=== PATIENT | female | born 1980 | race Caucasian/White ===

== ENCOUNTER 2024-09-06 23:31 | Emergency (ER) | payer MEDICAID ==
[~2024-09-06] VITALS: Ht 167.6 cm; Wt 136.6 kg
[2024-09-07 00:50] LABS: BASO # 0.1 10^3/uL (0.0-0.2); BASO % 0.8 % (0.0-1.0); EOS # 0.1 10^3/uL (0.0-0.5); EOS % 1.3 % (0.0-3.0); HEMATOCRIT 35.9 % (36.0-47.0); HEMOGLOBIN 13.1 g/dl (12.0-15.5); LYMPH # 2.7 10^3/uL (1.5-5.0); LYMPH % 29.3 % (24.0-44.0); MEAN CORPUSCULAR HGB CONC 36.5 g/dl (32.0-36.5); MONO # 0.6 10^3/uL (0.0-0.8); MONO % 6.4 % (2.0-8.0); NEUTROPHILS # 5.7 10^3/uL (1.5-8.5); NEUTROPHILS % 61.9 % (36.0-66.0); PLATELET COUNT, AUTOMATED 354 10^3/uL (150-450); RED BLOOD COUNT 3.74 10^6/uL (4.00-5.40); WHITE BLOOD COUNT 9.2 10^3/uL (4.0-10.0)
[2024-09-07 00:53] LABS: BLOOD UREA NITROGEN 25 MG/DL (9-23); CALCIUM LEVEL 9.2 MG/DL (8.5-10.1); CARBON DIOXIDE LEVEL 28 MMOL/L (20-31); CHLORIDE LEVEL 102 MMOL/L (98-107); CREATININE FOR GFR 0.61 MG/DL (0.55-1.30); GLOMERULAR FILTRATION RATE > 60.0 (>58); GLUCOSE, FASTING 84 MG/DL (60-100); POTASSIUM SERUM 3.8 MMOL/L (3.5-5.1); SODIUM LEVEL 137 MMOL/L (136-145)
[2024-09-07 04:43] LABS: THYROID STIMULATING HORMONE 2.695 uIU/ML (0.55-4.78)
[2024-09-07 07:30] VITALS: TEMP 97.4
[2024-09-07 08:00] VITALS: BP 101/56; O2SAT 95
== END 2024-09-07 08:16 | disposition home or self-care (01) ==
LOC: M ED 23:31
DX: N93.8 Other specified abnormal uterine and vaginal bleeding (principal); F12.10 Cannabis abuse, uncomplicated; F10.10 Alcohol abuse, uncomplicated; B96.81 Helicobacter pylori [H. pylori] as the cause of diseases classified elsewhere; R94.31 Abnormal electrocardiogram [ECG] [EKG]

== ENCOUNTER 2025-01-03 11:00 | Day surgery (SDC) | payer MEDICARE, MEDICAID ==
[~2025-01-03] VITALS: Ht 170.2 cm; Wt 140.2 kg
[~2025-01-03 11:00] MED LIST: D 1010004 PO; HYDR12CA PO; IRON65TA2 PO; KETOROLAC 60MG 2ML VIAL As Ordered ONE; LIDOCAINE 2% 100MG/5ML SDV (FOR ANES.) As Ordered ONE; MELO7.5T35 PO; MIDAZOLAM INJ 2MG/2ML VIAL As Ordered ONE; OMEG10002 PO; ONDANSETRON 4MG 2ML VIAL As Ordered ONE; PROBCAP14 PO; ROCURONIUM BROMIDE 50MG/5ML VIAL As Ordered ONE; THERTAB52 PO; VALT500T PO; ceFAZolin SOD 2 GM in IV 1 EA IV ONE; fentaNYL 100 MCG/2 ML INJECTION As Ordered ONE; propofoL 200 MG/20 ML VIAL As Ordered ONE
[2025-01-03] MEDS ORDERED: NS (Normal Saline) 0.9% 1,000 ML IV SCH ×2 (11:25→14:50)
[2025-01-03 11:48] LABS: HEMOGLOBIN 12.8 g/dl (12.0-15.5); MEAN CORPUSCULAR HEMOGLOBIN 32.3 pg (27.0-33.0); MEAN CORPUSCULAR HGB CONC 35.6 g/dl (32.0-36.5); MEAN CORPUSCULAR VOLUME 90.9 fl (80.0-96.0); PLATELET COUNT, AUTOMATED 336 10^3/uL (150-450); RED BLOOD COUNT 3.96 10^6/uL (4.00-5.40); WHITE BLOOD COUNT 5.2 10^3/uL (4.0-10.0)
[2025-01-03] MEDS ORDERED: ACETAMINOPHEN 1000MG/100ML IV BAG As Ordered ONE (12:36)
[2025-01-03] MEDS: ceFAZolin SOD 3 GM in DEXTROSE 5% (D5W) MINI-BAG PLU 1... IV ONE (12:53)
[2025-01-03] MEDS ORDERED: METOCLOPRAMIDE INJ 10MG/2ML VIAL As Ordered ONE (13:54)
[2025-01-03] MEDS ORDERED: hydrALAZINE 20MG/ML 1ML VIAL As Ordered ONE (14:12)
[2025-01-03] MEDS ORDERED: SUGAMMADEX SODIUM 500 MG/5 ML VIAL (BRIDION) As Ordered ONE (14:40)
[2025-01-03] MEDS ORDERED: fentaNYL 100 MCG/2 ML INJECTION IV PRN (14:50)
[2025-01-03] MEDS ORDERED: HYDROMORPHONE HCL 0.5 MG/ 0.5 ML SYRINGE IV PRN (14:50)
[2025-01-03] MEDS ORDERED: oxyCODONE 5MG TAB PO PRN (14:50)
[2025-01-03] MEDS ORDERED: IBUP-1022 PO (14:54)
[2025-01-03] MEDS ORDERED: COLA100C5 PO (14:54)
[2025-01-03] MEDS ORDERED: OXYC1TAB23 PO (14:55)
[2025-01-03] MEDS ORDERED: LR 1,000 ML IV SCH (15:10)
[2025-01-03] MEDS ORDERED: PERCOCET 5MG/325MG TAB PO PRN (15:15)
[2025-01-03] MEDS: ONDANSETRON 4MG 2ML VIAL IV PRN (15:15)
[2025-01-03 16:45] VITALS: BP 133/70; TEMP 98.4; O2SAT 96
== END 2025-01-03 16:45 | disposition home or self-care (01) ==
LOC: M SDC 11:00
PROVIDERS: ATTEND Specialist
DX: N92.0 Excessive and frequent menstruation with regular cycle (principal); D25.1 Intramural leiomyoma of uterus; N80.03 Adenomyosis of the uterus; N88.8 Other specified noninflammatory disorders of cervix uteri; N73.6 Female pelvic peritoneal adhesions (postinfective); D64.9 Anemia, unspecified; Z98.51 Tubal ligation status; I10 Essential (primary) hypertension; M32.9 Systemic lupus erythematosus, unspecified; Z79.899 Other long term (current) drug therapy; Z79.1 Long term (current) use of non-steroidal anti-inflammatories (NSAID)
CPT/HCPCS: 36415; 58571; 81025; 85027; 86850; 86900; 86901; 88307; J0131; J0360; J0665; J0690; J1100; J1885; J2250; J2405; J2765; J3010

== ENCOUNTER → 2025-01-25 | Outpatient (REF) | payer MEDICARE, MEDICAID ==
[~2025-01-25] MED LIST changes: +COLA100C5 PO; +IBUP-1022 PO; -KETOROLAC 60MG 2ML VIAL As Ordered ONE; -LIDOCAINE 2% 100MG/5ML SDV (FOR ANES.) As Ordered ONE; -MIDAZOLAM INJ 2MG/2ML VIAL As Ordered ONE; -ONDANSETRON 4MG 2ML VIAL As Ordered ONE; +OXYC1TAB23 PO; -ROCURONIUM BROMIDE 50MG/5ML VIAL As Ordered ONE; -ceFAZolin SOD 2 GM in IV 1 EA IV ONE; -fentaNYL 100 MCG/2 ML INJECTION As Ordered ONE; -propofoL 200 MG/20 ML VIAL As Ordered ONE
[2025-01-25 18:25] LABS: BASO # 0.1 10^3/uL (0.0-0.2); BASO % 0.9 % (0.0-1.0); EOS # 0.2 10^3/uL (0.0-0.5); HEMATOCRIT 35.5 % (36.0-47.0); HEMOGLOBIN 12.7 g/dl (12.0-15.5); LYMPH # 2.4 10^3/uL (1.5-5.0); MEAN CORPUSCULAR HEMOGLOBIN 32.4 pg (27.0-33.0); MEAN CORPUSCULAR HGB CONC 35.8 g/dl (32.0-36.5); MEAN CORPUSCULAR VOLUME 90.6 fl (80.0-96.0); MONO # 0.6 10^3/uL (0.0-0.8); MONO % 8.1 % (2.0-8.0); NEUTROPHILS # 4.5 10^3/uL (1.5-8.5); NEUTROPHILS % 57.6 % (36.0-66.0); PLATELET COUNT, AUTOMATED 397 10^3/uL (150-450); RED BLOOD COUNT 3.92 10^6/uL (4.00-5.40); WHITE BLOOD COUNT 7.9 10^3/uL (4.0-10.0)
[2025-01-25 18:29] LABS: ERYTHROCYTE SEDIMENTATION RATE 53 mm/hr (0-20)
[2025-01-25 18:45] LABS: HEMOGLOBIN A1c 5.2 % (4.0-6.0)
[2025-01-25 18:58] LABS: ALBUMIN 3.5 G/DL (3.2-5.2); ALKALINE PHOSPHATASE 84 U/L (35-104); ALT/SGPT 26 U/L (7.0-40); AST/SGOT 15 U/L (<34); BILIRUBIN,DIRECT < 0.1 MG/DL (<0.4); BILIRUBIN,TOTAL 0.2 MG/DL (0.3-1.2); BLOOD UREA NITROGEN 22 MG/DL (9-23); C REACTIVE PROTEIN QUANTITATIV 1.19 MG/DL (<1.0); CALCIUM LEVEL 8.8 MG/DL (8.5-10.1); CARBON DIOXIDE LEVEL 28 MMOL/L (20-31); CHLORIDE LEVEL 102 MMOL/L (98-107); CHOLESTEROL LEVEL 172 MG/DL (<200); CHOLESTEROL RISK RATIO 3.02 (<5); GLOMERULAR FILTRATION RATE > 60.0 (>58); GLUCOSE, FASTING 85 MG/DL (60-100); HDL CHOLESTEROL 56.9 MG/DL (>40); IRON (FE) 47 UG/DL (50-170); LDL CHOLESTEROL 96.3 MG/DL (<100); NON-HDL-C 115.1 MG/DL; PERCENT SATURATION 12.6 % (13.2-45.0); POTASSIUM SERUM 4.2 MMOL/L (3.5-5.1); SODIUM LEVEL 137 MMOL/L (136-145); TOTAL IRON BINDING CAPACITY 372 UG/DL (250-425); TOTAL PROTEIN 7.5 G/DL (5.7-8.2); TRIGLYCERIDES LEVEL 94 MG/DL (<150)
[2025-01-25 19:00] LABS: FERRITIN 11.5 NG/ML (7.3-270.7); THYROID STIMULATING HORMONE 1.656 uIU/ML (0.55-4.78); TOTAL 25(OH) VITAMIN D 39.9 NG/ML (20.0-100.0)
== END ==
LOC: M LAB REF 16:38
PROVIDERS: ATTEND Nurse Practitioner Family
DX: R69 Illness, unspecified (principal); E66.9 Obesity, unspecified; I10 Essential (primary) hypertension; Z86.39 Personal history of other endocrine, nutritional and metabolic disease; E55.9 Vitamin D deficiency, unspecified

== ENCOUNTER → 2025-04-06 | Outpatient (REF) | payer MEDICARE, MEDICAID ==
[2025-04-06 18:33] LABS: TOTAL 25(OH) VITAMIN D 33.4 NG/ML (20.0-100.0)
[2025-04-06 18:34] LABS: BLOOD UREA NITROGEN 18 MG/DL (9-23); CALCIUM LEVEL 8.6 MG/DL (8.5-10.1); CARBON DIOXIDE LEVEL 30 MMOL/L (20-31); CHLORIDE LEVEL 104 MMOL/L (98-107); CREATININE FOR GFR 0.58 MG/DL (0.55-1.30); FOLATE 20.3 NG/ML (>5.4); GLOMERULAR FILTRATION RATE > 90.0 (>58); GLUCOSE, FASTING 104 MG/DL (60-100); IRON (FE) 28 UG/DL (50-170); MAGNESIUM LEVEL 1.7 MG/DL (1.8-2.4); PERCENT SATURATION 7.9 % (13.2-45.0); POTASSIUM SERUM 4.2 MMOL/L (3.5-5.1); SODIUM LEVEL 141 MMOL/L (136-145); TOTAL IRON BINDING CAPACITY 356 UG/DL (250-425)
[2025-04-06 19:03] LABS: VITAMIN B12 LEVEL 675 PG/ML (211-911)
== END ==
LOC: M LAB REF 17:09
PROVIDERS: ATTEND Nurse Practitioner Family
DX: I10 Essential (primary) hypertension (principal); E55.9 Vitamin D deficiency, unspecified; D50.9 Iron deficiency anemia, unspecified; Z86.79 Personal history of other diseases of the circulatory system

== ENCOUNTER → 2025-11-12 | Outpatient (CLI) | payer MEDICARE ==
[~2025-11-12] MED LIST changes: +CHLO125TA; +HYDR12.510 PO; -HYDR12CA PO; -IBUP-1022 PO; +IBUP600T42 PO; +LISI10TA22
== END ==
LOC: M EKG 14:17
PROVIDERS: ATTEND Physician Assistant
DX: R00.2 Palpitations (principal)

== ENCOUNTER → 2025-11-15 | Outpatient (REF) | payer MEDICARE ==
[2025-11-15 15:50] LABS: BASO # 0.1 10^3/uL (0.0-0.2); BASO % 0.8 % (0.0-1.0); EOS # 0.1 10^3/uL (0.0-0.5); EOS % 1.6 % (0.0-3.0); LYMPH # 2.1 10^3/uL (1.5-5.0); LYMPH % 32.9 % (24.0-44.0); MONO # 0.6 10^3/uL (0.0-0.8); MONO % 8.8 % (2.0-8.0); NEUTROPHILS # 3.6 10^3/uL (1.5-8.5); NEUTROPHILS % 55.7 % (36.0-66.0); PLATELET COUNT, AUTOMATED 360 10^3/uL (150-450)
[2025-11-15 16:02] LABS: ALT/SGPT 34 U/L (7.0-40); AST/SGOT 21 U/L (<34); C REACTIVE PROTEIN QUANTITATIV 1.09 MG/DL (<1.0); CALCIUM LEVEL 9.0 MG/DL (8.5-10.1); CARBON DIOXIDE LEVEL 30 MMOL/L (20-31); CHLORIDE LEVEL 100 MMOL/L (98-107); CREATININE FOR GFR 0.53 MG/DL (0.55-1.30); GLOMERULAR FILTRATION RATE > 90.0 (>58); POTASSIUM SERUM 3.7 MMOL/L (3.5-5.1); SODIUM LEVEL 137 MMOL/L (136-145)
== END ==
LOC: M SFHCRHEU 10:08
PROVIDERS: ATTEND Internal Medicine Rheumatology
DX: R76.89 Other specified abnormal immunological findings in serum (principal)